=== PATIENT | female | born 1960 | race Caucasian/White ===

== ENCOUNTER 2018-11-27 22:09 | Inpatient (IN) | payer OTHER ==
[~2018-11-27] VITALS: Ht 152.4 cm; Wt 60.7 kg
--- NOTE | ~2018-11-27 | D ---
[facility] [place] [address] DISCHARGE SUMMARY Name: JAKOB QUINONES Room #: 526A-A [facility] IN M.R.#: [id number] Admission: 11/28/18 Attend Phys: Jose M Conway DO Discharge: 12/07/18 Date of : 56 Report #: [id number] THIS REPORT FOR: //name// CC: Jose M Conway [facility] physician/PCP DATE OF SERVICE: 12/07/2018 INPATIENT PSYCHIATRIC DISCHARGE SUMMARY ATTENDING PSYCHIATRIST: Jose M Conway DO ACCOUNTANT MANAGER: Adrian Garza MD DISCHARGE DIAGNOSES: Schizophrenia, suspect schizoaffective disorder, also substance use disorder for methamphetamines, likely severe degree. Medical comorbidities include hypertension, blood pressure is stable, gastroesophageal reflux disease, urinary tract infection resolved, and possible seizure disorder. DISCHARGE PLAN: She is discharged to the [facility]. It should be noted, we were advised day of discharge, the patient showed up at the [facility] and claims she had a bed there, which is not true. She was advised she needed to go through the application process and a bed at [facility] was not guaranteed. Apparently, the assisted called the hospital, [facility] that is as well as the patient's mother. DISCHARGE DIET: The patient is discharged with regular diet and Ensure supplement twice a day. DISCHARGE MEDICATIONS: Protonix 40 mg p.o. daily for GERD, naltrexone 25 mg p.o. daily dose for cravings and methamphetamine relapse, Depakote DR 1500 mg at bedtime, olanzapine 10 mg twice a day, cyanocobalamin 1000 mcg p.o. daily, cholecalciferol 5000 international units oral daily, vitamin oral daily. She was given a 30-day actual supply of the olanzapine, Depakote and naltrexone. ACTIVITY LEVEL: As tolerated. Avoid alcohol and drugs. Tobacco use was unclear, but certainly has long-term health consequences. REASON FOR ADMISSION: As follows, a 58-year-old female, homeless, presented, I believe to [facility], was feeling suicidal. Reported symptoms of major depression that is what got her admitted. HOSPITAL COURSE: The patient was initially seen by Mr. Ngo, covering for me over the weekend. At her admission, her Depakote and olanzapine were in place. I later added naltrexone to help prevent relapse. The patient would not [facility] [address] [place] [place] [address] DISCHARGE SUMMARY Name: JAKOB QUINONES ELVIA Room #: 526A-[facility] IN ..#: [id number] Admission: 11/28/18 Attend Phys: Jose M Conway, Discharge: 12/07/18 Date of : 56 Report #: [id number] cooperate with cognitive testing at that time and was paranoid, impulsive, and abrupt. There was not a clear pattern and it sounds that I thought she could be better medicated. The patient is facing ongoing homelessness. Given the lack of clinical progress and the need to make an attempt at community living for the patient, I elected to discharge her. On the day of discharge, she was not suicidal or homicidal. MENTAL STATUS EXAMINATION AT THE TIME OF DISCHARGE: As follows: VITAL SIGNS: Temperature 36.5, pulse 70, respirations 13, BP 106/61. MENTAL STATUS EXAMINATION: This is a well-developed, disheveled female appearing stated age. Attention limited. Concentration limited. Speech is normal rate. Thought process linear and limited. Thought content, feelings of frustration. No other suicidal intent or plan. Some hopelessness. Denied helplessness. Denied homicidal intent or plan. Memory, reports some impairment, refused objective testing. Insight limited. Judgment fair to limited. Fund of knowledge, no greater than average. LABORATORY DATA: The patient's lab work on this admission notable for CBC: H and H of 12.9 and 39.2, white count 7.9, platelets 222 on 11/29/2018. Chemistries are grossly normal. B12 level was 589. Urine was negative on admission. Toxicology showed a repeat Depakote level ____ 1500 mg. No repeat labs and it should be noted that she should actually be taking Depakote ER, not DR; however, I think the patient is most likely ____ sober. PROGNOSIS: For this patient is quite guarded due to her impulsive nature, limited community support and homelessness. By: [id number] Jose M Conway, DO /nt
[2018-11-27] MEDS ORDERED: DEPAKOTE500 MG PO (23:48)
[2018-11-27] MEDS ORDERED: PROTONIX40 M1 PO (23:48)
[2018-11-27] MEDS ORDERED: ZYPREXA ZYDIS10 MG PO (23:48)
[2018-11-27] MEDS ORDERED: TRAZODONE HCL50 MG PO (23:49)
[2018-11-27] MEDS ORDERED: PROPRANOLOL 1010 MG PO (23:49)
[2018-11-28 01:21] VITALS: BP 110/61
--- NOTE | 2018-11-28 02:25 | NUR ---
ADMISSION NOTE - PATIENT ARRIVED FROM [facility] AT APPROXIMATELY 0140. SHE ARRIVED IN AN EXTREMELY DISHEVELED APPEARANCE AND DISTINCT BODY ODOR. UPON FIRST INTERVIEW WITH PATIENT, SHE WOULD NOT SPEAK TO THIS RN. THIS NURSE CONTINUED TO EXPLAIN UNIT RULES, OFFERED PATIENT HANDBOOK, CODE AND PHONE NUMBER, OFFERED FOOD AND DRINK WITH NO REACTION OUT OF PATIENT. THIS RN AND PATIENT BEGAN THE ASSESSMENT PROCESS SHE BEGAN TO SPEAK MINIMAL WORDS WITH A SOFT WHISPER LIKE TONE. SHE WOULD NOT ELABORATE MUCH ON HER REASONING FOR BEING ADMITTED, BUT CONTINUED MAKING STATEMENTS SUCH SHE IS NOT SAFE ANYWHERE BECAUSE SHE WANTS TO KILL HERSELF TO GET AWAY FROM THE DEVIL. THIS NURSE ASKED IF PATIENT WOULD BE SAFE IN THE HOSPITAL SHE REPLIED 'NO' AND SHE WOULD FIND WHATEVER SHE COULD TO KILL HERSELF TO GET AWAY FROM THE DEVIL. SHE DID EXPLAIN TO THIS RN SHE HAS A HX OF SCHIZOPHRENIA ET BIPOLAR DISORDER AND HAS NOT TAKEN MEDICATION 'IN A WHILE.' SHE ALSO REPORTS THAT SHE HAS A SZ DISORDER FOR WHICH DEPAKOTE IS TAKEN. BRIM SETTER JANNY DEWEY CONTACTED TO RECEIVE ORDERS FOR VPA LEVEL, TRAZODONE 50MG, AND ONE TO ONE STATUS TO MONITOR PATIENT UNTIL STAFF KNOWS MORE OF PATIENTS BEHAVIOR AND ENSURE SAFETY OF PATIENT. NURSING INITIATED ONE TO ONE ROUNDS AND INTRODUCED PATIENT TO UNIT AND ADMINISTERED FIFTY MG OF TRAZODONE ORDERED. NURSING WILL CONTINUE TO MONITOR FOR CHANGES AND ENSURE SAFETY AT ALL TIMES.
[2018-11-28 09:24] VITALS: BP 107/57
--- NOTE | 2018-11-28 09:45 | NUR ---
ASSUMED CARE AT 0700 THIS MORNING. PT. ON 1:1 FOR SI. WHEN ASKED ABOUT HER SI, SHE STATED SHE WOULD DO ANYTHING AND EVERYTHING TO COMMIT SUICIDE, BUT SHE DID STATE SHE WOULD PERFER PILLS TO OTHER METHODS. SHE TALKS IN A VERY LOW, SOFT VOICE. SHE DOES APPEAR DEPRESSED. SHE TOOK HER MEDICATIONS WITHOUT PROBLEMS. SHE STATED ALL SHE WANT TO DO IS REST IN BED. SHE WAS INFORMED SHE COULD DO THAT FOR A LITTLE WHILE BUT NOT ALL DAY. SHE AGREED ON THIS. SHE DID, HOWEVER, SHE WENT BACK TO BED AFTER BREAKFAST. HER LUNGS WERE CTA, HRR. NO EDEMA NOTED. DENIES HI OR AVH AT THIS WRITING.
[2018-11-28 18:27] VITALS: BP 107/57
[2018-11-28 18:29] VITALS: BP 107/57
[2018-11-28 20:00] VITALS: BP 101/59
[2018-11-28 22:54] VITALS: BP 101/59
--- NOTE | 2018-11-29 01:25 | NUR ---
PATIENT WAS UP IN DAYROOM FOR HS SNACK. SHE CONTINUES ON 1:1. SHE SPOKE WITH ANOTHER NURSE AND GOT TEARY EYED AND WANTED TO SPEAK WITH HER MOM. THIS NURSE CALLED THE MOM AND LET HER KNOW PT WANTED TO SPEAK WITH HER AND WANTED TO KNOW IF MOM WOULD WANT TO SPEAK WITH HER OR NOT. SHE SAID SHE WOULD. I ASKED HER TO KEEP IT QUICK. PATIENT SPOKE A COUPLE OF MINUTES TO MOM AND CALMED SOME. PATIENT'S PHYSICAL ASSESSMENT WNL. PATIENT STATES THAT SHE IS NOT WANTING OR THINKING OF HARMING HERSELF WHEN I ASKED HER. PATIENT WENT BACK TO ROOM AND HAS BEEN CALM AND SLEEPING. BED ALARM ON AND BED IN LOW POSTION. SUICIDE PRECAUTIONS IN EFFECT. MONITORING PATIENT.
[2018-11-29 05:42] LABS: HEMATOCRIT 39.2 % (37.0-47.0); HEMOGLOBIN 12.9 gm/dL (12.0-15.0); MCH 29.6 pg (26.0-34.0); MCV 89.7 fL (80.0-100.0); RBC 4.38 mil/uL (4.20-5.00); RDW 15.4 % (10.5-14.5); WBC 7.9 thou/uL (4.0-11.0)
[2018-11-29 05:50] LABS: CALCIUM 8.9 mg/dL (8.5-10.1); CREATININE 0.9 mg/dL (0.6-1.0); POTASSIUM 4.3 mmol/L (3.5-5.1)
[2018-11-29 07:30] VITALS: BP 106/64
--- NOTE | 2018-11-29 08:35 | NUR ---
PT SITTING AT TABLE FOR BREAKFAST. PT NEEDED ENCOURAGEMENT TO EAT BREAKFAST. PT LUNGS CLEAR. PT DENIES ANY SI AT THIS TIME. D/C 1:[address] RAMIREZ. PT TOOK MEDS THIS AM. PT HAD LEFT HAND IN A FIST, LOOKED IN FIST, NOTHING THERE.
[2018-11-29 08:36] LABS: URINE BILIRUBIN NEGATIVE (Negative); URINE BLOOD NEGATIVE (Negative); URINE CLARITY CLEAR; URINE COLOR YELLOW; URINE GLUCOSE-RANDOM* NEGATIVE (Negative); URINE KETONES NEGATIVE (Negative); URINE LEUKOCYTES-REFLEX NEGATIVE (Negative); URINE NITRITE-REFLEX NEGATIVE (Negative); URINE PROTEIN (DIPSTICK) NEGATIVE (Negative); URINE UROBILINOGEN 0.2 E.U./dl (0.2-1.0)
[2018-11-29 09:03] VITALS: BP 106/64
--- NOTE | 2018-11-29 10:48 | NUR ---
PT ATTENDED HALF OF AM GROUP. PT BACK IN ROOM IN BED. CHECKING ON PT SHE STATED TO NURSE GOD BLESS YOU.
--- NOTE | 2018-11-29 15:43 | NUR ---
PT WANTING TO KNOW ABOUT SOME OF HER HOME MEDS LIKE BP MED, HER BP HAS BEEN IN LOW 100'S, PT STATED THEY HELP WITH HER SHAKES. PT PLAYING CARDS WITH 2 OTHER RESIDENT LADIES.
[2018-11-29 20:00] VITALS: BP 133/70
--- NOTE | 2018-11-29 22:23 | NUR ---
Care assumed of patient at 1914: Patient alert and oriented x4. Patient anxious this evening. Patient paranoid around other peers and environment. Patient feels that "everyone is going to get me". Reports that she needs to get a new roommate. She is not able to state why. Reports that she feels safe. So, unknown why she is requesting this. Patient slouched, presents with flat affect, difficultly making eye contact. Patient took HS medication without difficulty. Ate 100% HS snack. Patient denies SI/HI/AH/VH. Patient up at [facility] 2129 stating that she can't sleep. Patient requested medication to help her sleep. Patient provided PRN Trazodone at 2146. Patient sat on the couch for a few minutes before retiring to bed. Patient appears to be resting at this time. Patient was reassured that the bed alarm is on and if her or her roommate get out of bed, the alarm will sound and nursing staff will respond. Patient has a soft voice and needs encouragement to speak with staff. Patient did have a slight tremor to her bilateral upper extremities around 2129 when speaking with nurse. Patient reported that she was cold at that time.
[2018-11-30 08:47] VITALS: BP 125/99
--- NOTE | 2018-11-30 09:50 | NUR ---
PATIENT HAS BEEN UP ON UNIT. SUSPICIOUS AND GUARDED WHEN APPROACHED. APPEARS FEARFUL AND NEEDS ALOT OF REASSURANCE AND ENCOURAGEMENT. NEEDS MONITORING WHEN ADMINISTERING MEDICATIONS. BECAME TEARFUL WHEN APPROACHED ON HER FEARS.HS BEEN OUT ON UNIT - SOCIAL WITH PEERS BUT SHARES HER CONCERNS WITH OTHERS.
[2018-11-30 20:08] VITALS: BP 122/99
--- NOTE | 2018-11-30 22:06 | NUR ---
ASSUMED CARE OF THE PT AT 191 PM. ALERT ET ORIENTED X 2, MAKES NEEDS KNOWN. WALKS WITH A STEADY GAIT. HEART RATE REGULAR, LUNGS CLEAR BILATERALLY, RESP., EVEN, AND UNLABORED. +BS HEARD IN ALL 4 QUADRANTS. ABD SOFT ET NON TENDOR. +PP BILATERALLY. DENIES SI/HI/ANXIETY, DEPRESSION, A/V HALLUNICATIONS. REMAINS ON 12 MINUTE CHECKS FOR HER SAFETY.
--- NOTE | 2018-12-01 01:32 | NUR ---
THE PT REQUESTED SOMETHING FOR ANXIETY, GAVE THE PT ATARAX ORDERED, WHICH WHEN GIVEN TO HER ORDERED, SHE THEN REFUSED IT AND STATED THAT SHE WOULD TALK WITH THE DOCTOR IN THE AM.
--- NOTE | 2018-12-01 14:27 | NUR ---
UPON INITAL ASSESSMENT THIS AM SPEECH MUMBLED AND SOFT,POOR EYE CONTACT DIFFICULT TO HEAR AND UNDERSTAND.REQUESTED AND RECEIVED VISTARIL 50MG PO PRN AT 1230 FOR C/O ANXIETY-IS NOTED TO HAVE FINE HAND TREMOR WHICH INCREASES WITH PURPOSEFUL MOVEMENT. DENIES SI/SH/HI-DOES REPORT ANXIETY ATED A 7 ON 1-10 SCALE STATING "I DON'T KNOW HOW THINGS WORK" COMPLIENT WITH MEDS. DENIES C/O PAIN/DISCOMFORT. GAIT STEADY WITHOUT ASSISTIVE DEVICES.
[2018-12-01 19:51] VITALS: BP 130/78
--- NOTE | 2018-12-01 19:56 | NUR ---
ASSUMED CARE OF THE PT AT 191 PM. ALERT ET ORIENTED X 3. MAKES NEEDS KNOWN. HEART RATE REGULAR, LUNGS CLEAR BILATERALLY. RESP., EVEN, AND UNLABORED. +BS HEARD IN ALL 4 QUADRANTS. ABD SOFT ET NONTENDOR. +PP BILATERALLY. DENIES PAIN AT THIS TIME. REMAINS ON 12 MINUTE CHECKS FOR HER SAFETY.
[2018-12-02 08:25] VITALS: BP 119/71
--- NOTE | 2018-12-02 12:45 | NUR ---
PATIENT HAS BEEN COMPLIANT WITH MEDICATIONS. REMAINS CAUSIOUS AND GUARDED WITH CERTAIN INDIVIDUALS. PATIENT REQUESTED MEDICATION FOR ANXIOUSNESS THIS MORNING. EMOTIONAL OVER INABILITY TO GO TO [facility]. CONCERNED - WANTS TO GO THERE TO GET HELP WITH DRUG AND ALCOHOL TREATMENT AND HELP WITH RETRAINING FOR WORK. PATIENT AFFECT BLUNTED AND MOOD SUSPICIOUS AND GUARDED. WILL TRY TO MANUPULATE STAFF TO RETIRE TO HER ROOM AND ISOLATE EVERY CHANCE SHE CAN. STATES ATARAX HELPS WITH ANXIETY WHEN REASSESSED. REQUESTED TO USE PHONE TODAY AND ADVISED LIMITED TO TWO A DAY. TOLERATED EXPLANATION WELL. DENIES ANY S/I OR H/I WHEN QUESTIONED. REQUESTED THIS STAFF MEMBER TO PRAY FOR HER GUIDANCE AND WELLBEING.
--- NOTE | 2018-12-03 00:58 | NUR ---
Care assumed of patient at 1899: Patient laying in bed at start of shift. Day shift reports that patient received an IM injection for agitation and aggressive behavior prior to shift change. Upon assessing patient, she was suspicious, guarded, paranoid. Patient restless, pacing around her room, sitting on the floor. Patient stated that she needed a Bible. Patient had 2 Bibles in her room and they were given to her. Patient asking why she is always wrong, why she can't do anything right. Reports that the devil is going to get her, how does she get José Miguel. Worried about "the world". Patient yelling at the nurse stating that she was being locked up to . States that she just wants to "see the light". Bed alarm was set and she asked why she was being tied down. Patient observed laying in bathroom floor, on roomates bed. Pacing from dining room to bedroom. Patient hyperverbal. Nurse unable to re-direct or re-orientate patient. Patient threatened to hit nurse and was being confrontational. C 13 CATAPULT OPERATOR notified of behaviors. Ordered obtained to administer Thorazine 25mg IM at 2024. Patient crying stating the she needed her sleeping pill. Patient was provided scheduled HS medication, PRN Trazodone and IM Thorazine without any difficulty. Patient was able to become calmer around 2129 and appeared to fall asleep around that time. Patient has appeared to be resting since falling asleep.
--- NOTE | 2018-12-03 11:50 | NUR ---
DHAVAL met with Treatment team concerning pt going back to [facility]. DHAVAL spoke with [facility] concerning pt been accepted into there [facility]. Honey at [facility] mention that pt she would have to complete the application, and do evaluation before she accepted into the program. DHAVAL mention that pt would have go to the mcc due to she is not having a place to stay. DHAVAL and Dr. guevara met with pt concerning staying until December to be able to complate treatment, and assisting her with a mcc placement. Pt stated that she is willing to go to a mcc, and stay until Thursday of next week. DHAVAL will follow-up with pt.
--- NOTE | 2018-12-03 11:59 | NUR ---
Nutrition status changed to low risk with nutrition interventions in place.
--- NOTE | 2018-12-03 12:53 | NUR ---
Date of Admission: 11/28/18 Date of Activity Therapy Assessment: 12/01/18 Activity Goal: Increase socialization and appropriate social boundaries Initial Goal: 1 Group activity/day Weekly progress towards goal: On track Group participation level: Minimal Behaviors observed: Patient is on track for goals, but participation varies. Patient exhibits difficulty concentrating in groups and frequently exits and re enters. Patient also exhibits poor social boundaries and frequently requires redirection to respect the space and privacy of other patients and staff. Labile moods. Plan: No change towards goal
[2018-12-03 19:33] VITALS: BP 137/78
--- NOTE | 2018-12-04 01:14 | NUR ---
Care assumed of patient at 1915: Patient alert and oriented x4 with occasional confusion observed. Patient isolating self to room this shift. Declined HS snack. Patient has difficulty making eye contact. Mumbled, rambling speech. Disorganized thoughts. Patient was provided her scheduled HS medication. Depakote 1,000mg was placed in a cup and given to patient. She took medication without any difficulty. Zyprexa ODT was in the package and opened in front of patient to put under her tongue. Patient became paranoid and stated she would not take the medication. Patient stated that she was not taking "Aspirin". Education provided on medication. Patient stated that she would not take it unless nurse brings her a new pill that is not opened. Patient started to swing arms and knocked the pill to the floor. Patient would not explain why she needed a pill unopened other than paranoia on what the medication could be. Patient provided unopened Zyprexa ODT and she took it without difficulty. Patient denies SI/HI/AH/VH. Patient did not fixate on shinto thoughts and the devil this shift. Patient was able to retire to bed without any difficulty this PM and has been resting quietly since.
[2018-12-04 07:27] VITALS: BP 109/60
--- NOTE | 2018-12-04 08:29 | NUR ---
PT REFUSING ZYPREXIA MED STATING I DON'T NEED IT. PT GOING AROUND VISITING OTHER RESIDENTS AND HUGGING AND CRYING. PT DISCURAGED ABOUT TOUCHING OTHER RESIDENTS. PT WALKS AROUND WITH BLANKET OVER SHOULDERS AND HAS A FAST WALK.
--- NOTE | 2018-12-04 09:09 | NUR ---
PT ASKING NURSE FOR ANTIANXIETY MED. ADM VISTERIL 25MG PO FOR ANXIETY.
--- NOTE | 2018-12-04 11:20 | NUR ---
PT VERY INTRUSIVE WHEN OTHER FAMILY MEMBERS ARE VISITING.
--- NOTE | 2018-12-04 18:25 | NUR ---
REPLACED PT ARMBAND. PT RIPPED OFF THE PLASTIC PART TO THE ARMBAND AND HELD BEHIND HER BACK. THIS NURSE STATED THAT WE NEEDED THE PLASTIC PART OF ARMBAND, PT STATED WHAT I'M NOT GOING TO EAT IT. TOOK PLASTIC FROM PATIENT TO SHRED THE NAME PART.
[2018-12-04 20:01] VITALS: BP 143/63
--- NOTE | 2018-12-04 21:52 | NUR ---
ASSUMED CARE OF THE PT AT 191 PM. ALERT ET ORIENTED X 4. MAKES NEEDS KNOWN. HEART RATE REGULAR. LUNGS CLEAR BILATERALLY, RESP., EVEN, AND UNLABORED. +BS HEARD IN ALL 4 QUADRANTS. +PP BILATERALLY. THE PT TOOK HER HS MEDICATIONS. DENIES PAIN AT THIS TIMES, DENIES ANXIETY, DEPRESSION. DENIES SI/HI, A/V HALLUNICATIONS. REMAINS ON 12 MINUTE CHECKS FOR HER SAFETY.
--- NOTE | 2018-12-05 04:28 | NUR ---
THE PT WAS SLEEPING ON THE COUCH IN THE DAYROOM, BUT EVENTUALLY SHE WENT TO BED. DENIED PAIN EARLIER IN THE SHIFT. REMAINS ON 12 MINUTE CHECKS FOR HER SAFETY.
[2018-12-05 09:10] VITALS: BP 120/59
--- NOTE | 2018-12-05 16:49 | NUR ---
PT BECAME ABRUPTLY UPSET AND AGITATED AT APPROX 1400 ASKING TO TALK TO FAMILY AND ASSISSTED IN DIALING MOTHERS PHONE NUMBER BUT BECOMES LOUD AND AGITATED STATING "THIS ISN'T MY MOTHER THIS IS AN IMPOSTER-THEN ATTEMPTED TO GET OUT OF EXIT DOORS AND WHEN REDIRECTED CAME UP TO NURSING STATION AND BEGAN TO POUND ON GLASS,SCREAMING LET ME OUT OF HERE "YOU NEED TO GET MY FAMILY UP HERE NOW" THREW ICE WATER ON FLOOR AND INTO NURSING STAFF. SECURITY CONTACTED AND ORDERS RECEIVED FOR GEODON 20MG IM IN [facility] WITH ASSISTANCE OF SECURITY
[2018-12-05 19:55] VITALS: BP 124/72
--- NOTE | 2018-12-05 20:03 | NUR ---
PT REFUSED DEPAKOTE MEDICATION STATING 'IM NOT TAKING ALL THOSE PILLS' PT APPEARS PARANOID R/T HOSPITALIZATION.
--- NOTE | 2018-12-06 03:29 | NUR ---
ASSUMED CARE AT APPROXIMATELY 1915, PATIENT APPEARS WITH A FLAT BLUNTED AFFECT. THIS RN CONDUCTED ONE TO ONE WITH PATIENT WHO APPEARS DISHEVELED AND MALODOROUS. THIS NURSE ENCOURAGED ADLS. DURING MEDICATION PASS THE PATIENT BEGAN TO EXHIBIT BX SUCH PARANOIA R/T HER MEDICATION DOSEAGE, SIZE AND SHAPE OF THE COLORS AND STATED TO THIS 'I DONT TRUST ANYTHING YOU DO.'PLEASE SEE OTHER NOTES REGARDING INITIAL REFUSAL OF PO DEPAKOTE. SHE DID DENY SI HI SH WELL HALLUCINATIONS. SHE DID NOT REPORT ANY MEDICAL CONCERNS WITH NO S/S OF DISTRESS. NURSING WILL CONITNUE TO MAINTAIN ALL PRECAUTIONS TO ENSURE SAFETY AT ALL TIMES.
[2018-12-06 11:55] VITALS: BP 116/75
--- NOTE | 2018-12-06 13:29 | NUR ---
PATIENT OBSERVED HURRYING TOWARDS DINING JENSEN WITH CUP IN HER HAND. STAFF ROUNDED CORNER FROM BACK HALLWAY AFTER HER ANNOUNCING PATIENT HAD URINE IN THE CUP. ATTEMPT MADE TO REDIRECT PATIENT WHILE WALKING TOWARDS HER. PATIENT EMPTIED CUP INTO WATER MACHINE IN DINING ROOM AFTER BEING INSTRUCTED TO STOP AND HAND STAFF THE CUP. PATIENT WENT TO TABLE TO SIT AFTER EMPTYING CUP WITH EMPTY CUP IN HAND. PATIENT EDUCATED THAT SHE WAS NOT ABLE TO EMPTY URINE IN THERE AND TOLD IT CAN HARM HERSELF & OTHERS. PATIENT ARGUMENTATIVE THAT SHE WAS NOT ABLE TO GET IN HER ROOM. MACHINE SANITIZED WITH BLEACH AFTER INCIDENT. PATIENT REMAINED IN DINING ROOM W/ STAFF SUPERVISION.
--- NOTE | 2018-12-06 17:39 | NUR ---
PATIENT ALERT AND ORIENTED AND BECOMES TEARFUL REGARDING HER INPATIENT PSYCH STAY. PATIENT HAS MANY REQUESTS FROM STAFF REGARDING HER ROOM ASSIGNMENT AND FOOD AND MEDICATIONS. IF PATIENT DOES NOT GET WHAT SHE WANTS SHE BECOMES TEARFUL AND WILL APPROACH OTHER STAFF WITH THE SAME REQUEST. PATIENT BECAME AGITATED REGARDING BATHROOMING SEVERAL TIMES AND CALLED STAFF LIARS INDICATED SHE WAS NOT ALLOW TO TOILET. HOWEVER PATIENT OFFERED TOILETING MULTIPLE TIMES, BUT REFUSED TO LEAVE MULTIPLE ITEMS AND CLOTHING OUT OF BATHROOM. PATIENT FINALLY COMPLIED AND TOILETED BY FEMALE STAFF. PATIENT WROTE NOTE TO ANOTHER PATIENT TODAY STATING, "THE MEDS ARE CHANGED ALL THE TIME." AND GAVE NOTE TO ANOTHER PATIENT. THE WRITTEN NOTE IS DATED AND TIME AND PLACED IN PAPER CHART. PATIENT SLEPT 6 HRS LAST NIGHT PER SPECIALTY FINISHING UTILITY PERSON. PATIENT REFUSED GROUPS TODAY AND UPSEPT ABOUT NOT BEING ALLOWED TO HER ROOM. POSSIBLE DISCHARGE TOMORROW.
[2018-12-06 19:12] VITALS: BP 155/87
--- NOTE | 2018-12-06 19:28 | NUR ---
ASSUMED CARE OF THE PT AT 191 PM. THE PT HAS BEEN UP AND ABOUT THE UNIT. ALERT ET ORIENTED X 3. MAKES NEEDS KNOWN. HEART RATE REGULAR, LUNGS CLEAR BILATERALLY, RESP., EVEN, AND UNLABORED. +BS HEARD IN ALL 4 QUADRANTS. ABD SOFT ET NON TENDOR. +PP BILATERALLY. DENIES PAIN AT THIS TIME. REMIANS ON 12 MINUTE CHECKS FOR HER SAFETY.
--- NOTE | 2018-12-06 21:12 | NUR ---
THE PT HAS BEEN HAVING DELUSIONS TONIGHT, THINKING HER ROOMMATE TOUCHED HER INAPPROPRIATELY, WHICH SHE HAD NOT. STATING THAT HER MEDS WERE GOING TO KILL HER TONIGHT, SHE ONLY TOOK 500MG OF HER DEPAKOTE THIS EVENING, REFUSING THE REST OF IT. SHE DID TAKE HER OLANZPINE SL. SHE IS VERY CONFUSED THIS EVENING, THINKS EVERYONE IS TALKING ABOUT HER. SHE CAME UP TO THE NURSING STATION REQUESTING TO TAKE THE REST OF HER MEDICATION, WHICH SHE DID TAKE WITHOUT ANY DIFFICULTY.
--- NOTE | 2018-12-06 21:41 | NUR ---
THE PT CAME UP TO THIS NURSE SAYING, "I AM THE DEVIL." THIS TUBERCULOSIS SPECIALIST EXPLAINED TO THE PT THAT SHE IS NOT THE DEVIL. A FEW MINUTES LATER, SHE ASKED TO HAVE SOMETHING TO EAT, WHICH WAS GIVEN TO THE PT, SHE THEN TRIED TO PUT HER HANDS IN THIS TUBERCULOSIS SPECIALIST'S POCKETS, THE PT WAS THEN REDIRECTED.
[2018-12-07 09:39] VITALS: BP 106/61
[2018-12-07] MEDS ORDERED: DEPAKOTE500 MG PO (10:29)
[2018-12-07] MEDS ORDERED: REVIA 50 MG TAB50 M1 PO (10:29)
[2018-12-07] MEDS ORDERED: ZYPREXA 10 MG T10 MG PO (10:31)
[2018-12-07] MEDS ORDERED: B-121000 MC2 PO (10:32)
[2018-12-07] MEDS ORDERED: VITAMIN D5000 UNIT PO (10:33)
[2018-12-07] MEDS ORDERED: PRENATAL PO (10:33)
--- NOTE | 2018-12-07 11:29 | NUR ---
PATIENT HAS BEEN UP AND OUT ON THE UNIT FOR MEALS AND MEDS. TOOK ALL MEDICATION WHOLE ONE AT A TIME WITHOUT DIFFICUTY. APPETITE IS GOOD, PATIENT EATS 75% MEALS. PATIENT IS FORGETFUL, VERY CONFUSED, DISORGANIZED THOUGHTS. PATIENT DENIES SUICIDAL AND HOMOCIDAL IDEATION. SHE IS RESTLESS, ANXIOUS, MULTIPLE SOMATIC COMPLAINS, " DO YOU HAVE ANYTHING THAT CAN CURE CONFUSION?" PATIENT REDIRECTED AND NOTIFIED THAT I CAN GIVE HER SOMETHING TO CONTROL HER ANXIETY, BUT DON'T KNOW IF THERE IS ANYTHING THAT CAN CURE CONFUSION. PATIENT MAKING MULTIPLE DEMANDS. PRN HYDROXYZINE 25 MG GIVEN, WITH MIN EFFECT. PATIENT DENIES HAVING PHYSICAL PAIN. AFFECT IS FLAT MOOD IS ANXIOUS, LABILE. PATIENT IS DISCHARGED TO [facility] BY DR. RAMIREZ TODAY. NURSING EDUCATION SPECIALIST SET UP TRANSPORTATION FOR 1400HRS, WILL MONITOR FOR SAFETY.
[2018-12-07 12:55] VITALS: BP 106/61
[2018-12-07 13:13] VITALS: BP 106/61
--- NOTE | 2018-12-07 16:54 | NUR ---
Patient Name: JAKOB QUINONES Admission Date: 11/28/18 DISCHARGE PLAN: [facility]. Care Assessment: Pt was assessed by Dr. Conway in diagnosed with Major Depressive Disorder with Behavior Disturbances. Level II Assessment: None Transportation: Pt was transported by the [facility] Instructions/Notes: Pt will need continuance care with a psychiatrist, and housing. DHAVAL spoke with a case manager specialist at [facility] who mention if the pt complete the 30 day transtion program she can qualify for housing. DHAVAL assist pt with her medication for 30 day supply through [facility] outpatient pharmacy. DISCHARGE TO FACILITY: Facility: Phone: Fax: Address: Contact Name: Phone: PCP: ELIZA Psychiatrist: DHAVAL assist pt with appointment through [facility] on December 15, 2018 at Noon.
== END 2018-12-07 16:45 | disposition home or self-care (01) | DRG 885 ==
LOC: SBH 22:09
PROVIDERS: Internal Medicine; ADMIT Psychiatry & Neurology Psychiatry
DX: F20.9 Schizophrenia, unspecified (principal); N39.0 Urinary tract infection, site not specified; R45.851 Suicidal ideations; F15.90 Other stimulant use, unspecified, uncomplicated; I10 Essential (primary) hypertension; K21.9 Gastro-esophageal reflux disease without esophagitis; F31.9 Bipolar disorder, unspecified; G47.00 Insomnia, unspecified; F41.9 Anxiety disorder, unspecified; F03.90 Unspecified dementia, unspecified severity, without behavioral disturbance, psychotic disturbance, mood disturbance, and anxiety; G40.909 Epilepsy, unspecified, not intractable, without status epilepticus; Z87.891 Personal history of nicotine dependence; Z79.899 Other long term (current) drug therapy
CPT/HCPCS: 10880

== ENCOUNTER 2019-02-16 17:26 | Inpatient (IN) | payer OTHER ==
[~2019-02-16] VITALS: Ht 152.4 cm; Wt 60.8 kg
[~2019-02-16 17:26] MED LIST: B-121000 MC2 PO; DEPAKOTE500 MG PO; PRENATAL PO; PROPRANOLOL 1010 MG PO; PROTONIX40 M1 PO; REVIA 50 MG TAB50 M1 PO; TRAZODONE HCL50 MG PO; VITAMIN D5000 UNIT PO; ZYPREXA 10 MG T10 MG PO; ZYPREXA ZYDIS10 MG PO
[2019-02-16 19:20] VITALS: BP 131/83
[2019-02-16 22:09] VITALS: BP 131/83
--- NOTE | 2019-02-16 22:24 | NUR ---
POLICE WERE CALLED TO [place] WHERE PT WAS STAYING. C/O FEELING SUICIDAL. EMS TRANSFERRED PT TO [facility] ED FOR EVAL. THEY CONTACTED [facility]. PT HAS BEEN A PREVIOUS PT HERE. ACCEPTED FOR ADMISSION AND TRANSFERED TO UNIT FROM [facility]. CALM AND COOPERATIVE UPON ADMISSION. HAS BEEN DEPRESSED AND FRUSTRATED THAT SHE CANNOT FIND A PLACE TO LIVE. HAS BEEN TO [facility] IN THE PAST, BUT THEY ARE "ALL FULL". CLAIMS THAT HER SI IS INFREQUENT BUT THERE OCCASIONALLY. CLAIMS TO HAVE BEEN TAKING HER SCHEDULED MEDS. MEDICAL HX INCLUDES PARKINSONS, HTN, AND SEIZURES. SHE HAS A SUBSTANCE ABUSE HX INCLUDING METH AND ETOH. CLAIMS TO ONLY DRINK "ONCE IN A WHILE".
--- NOTE | 2019-02-17 03:14 | NUR ---
PT HAS SLEPT WELL THROUGH THE NIGHT W/O PROBLEM.
[2019-02-17 08:59] VITALS: BP 104/53
[2019-02-17 09:10] VITALS: BP 104/53
--- NOTE | 2019-02-17 16:46 | NUR ---
0700: Report received from outgoing RN and care assumed. Pt is alert and aware of where she is at this morning. Ahe came for breakfast. Able to take medications without any issue. Able to ambulate around the unit. Didnt attend therapy today. Pt calm and cooperative. She refused nicotine patch and Flu vaccine. Education given but she still didn't accept. Pt has resting tremors. Will continue with plan of care.
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
[2019-02-17 20:06] VITALS: BP 120/88
--- NOTE | 2019-02-17 22:44 | NUR ---
PT SITTING IN DAY ROOM WITH PEERS WATCHING TV. COMPLIANT WITH MEDS AND SNACK, BLUNTED AFFECT. PT STATED SHE HAS BEEN HOMELESS AND STAYING AT DIFFERENT PLACES. GAIT STEADY.
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
--- NOTE | 2019-02-18 10:29 | NUR ---
0700 Sleeping without s/o distress. Awakens easily, orientated X4. Denies SI/HI. Ambulates without difficulty. Cooperative and compliant. Breath sounds clear t/o, bilaterally equal, slightly diminished in lower lobes. Reg HR auscultated. Color pink with brisk capillary refill and palpable peripheral pulses. Active bowel sounds over soft, flat abdomen. Denies pain. 0930 Refusing flu shot. States, "At first it makes you very sick." Also refusing nicotene patch. States, "I don't need it yet." Says she will ask when she thinks she needs it. Refused Divalproex. States she only takes it in the evening. Education provided. States it is making her too sleepy and she will not take it. Agrees to discuss with Dr. Conway. Dr. Conway notified just prior to care team meeting. States he will discuss meds with patient today.
--- NOTE | 2019-02-18 12:14 | NUR ---
DHAVAL talked with Lissett Carver who told SW some of pt's history. She said pt resided at [facility] and she met pt on 01/18. When pt attempted to enroll in Mental Health Court on 01/25, the police judge felt like she was not ready for [facility] yet, and wanted to review this in 30 days. Pt then moved up [place] where she did not have access to any resources. She said contrary to what pt said about [facility] wanting to tranfer her, they have said she can remain in their program. however JR, has yet to start that process due her being unsure if pt will follow through. SW asked if pt decided to get all of her services from [facility] if that was an option. JR said that is an option if pt decides that is what she would like to do. DHAVAL said she will ask pt to sign a TREY if she would like her to coordinate her d/c care with Lissett. She agreed. DHAVAL talked with pt about d/c plans and signing a TREY for JR. Pt agreed to complete a TREY and also agreed that maybe having all services at [facility] was the best option due to her cognitive issues. SW team will continue to follow pt during her stay.
[2019-02-18 20:29] VITALS: BP 108/66
--- NOTE | 2019-02-19 02:22 | NUR ---
1909-Report received from day shift nurses and care assumed.Taran had a shower this evening, was compliant with HS meds., had no c.o.pain. She said she had a good day today, soft spoken, stayed to herself in the day room watching TV, and wanted her small bible in her belongings bag which she received. She had no SI and said she talked to the DRAnh today. She has slept well all nite thus far.
[2019-02-19 07:10] VITALS: BP 101/59
[2019-02-19 07:20] VITALS: BP 101/59
--- NOTE | 2019-02-19 13:56 | NUR ---
Sleeping w/o s/o distress. States she is cold when awakened for breakfast. Denies pain, SI/HI. Breath sounds clear t/o, bilaterally equal. Color pink with brisk capillary refill and palpable peripheral pulses. Active bowel sounds over soft, flat abdomen. Up ambulating in unit without difficulty. Requesting soda for lunch. No other issues reported.
[2019-02-19 20:06] VITALS: BP 104/53
--- NOTE | 2019-02-19 23:23 | NUR ---
ASSUMED CARE ON 02/19/19 @ 19:00, SITTING IN THE DAY ROOM IN A CHAIR AT THE TABLE, WEARING A HOSPITAL GOWN, WITH A SECOND GOWN TURNED AROUND BACKWARDS A ROBE. COOPERATED WITH ASSESSMENT AND HS MEDICATIONS. DENIES SI AND HI. DENIES HALLUCINATIONS, BOTH AUDIO AND VISUAL. WILL CONTINUE TO MONITOR Q 12 MINUTES FOR PATIENT SAFETY.
[2019-02-19 23:27] VITALS: BP 104/53
--- NOTE | 2019-02-20 06:25 | NUR ---
SLEPT 8.6 HOURS OVERNIGHT.
[2019-02-20 07:36] VITALS: BP 107/47
[2019-02-20 10:29] VITALS: BP 151/47
--- NOTE | 2019-02-20 10:36 | NUR ---
0703 Report received from overnight shift, patient ate breakfast took medication without incidence. Patient denies any SI, I washed patients clothes. Patient is homeless and states she is trying to get better. Patient seems a little antsy, neuro cognitive testing down 02/19/19. Patient cooperative calm.
[2019-02-20 19:55] VITALS: BP 114/91
--- NOTE | 2019-02-21 01:37 | NUR ---
Care assumed of patient at 1915: Patient seated in day room at start of shift. Patient observed coloring and reading. Patient alert and oriented x4. Calm, pleasant and cooperative. Blunted appearance observed. Patient had some difficulty making eye contact during nursing assessment. Denies pain or discomfort. Patient completes ADLs independently at this time. When asked if patient was having SI, she stated "no because I have a roof over my head now". Patient reported the same answer when she was asked about feeling depressed or anxious. Denies HI/AH/VH. No s/s of delusional or paranoia behaviors. Patient took HS medication whole without difficulty. Ate 100% HS snack. Patient did need re-directed a couple times on focusing on herself and her emotional well being and not other peers present. Patient was able to retire to bed at a reasonable hour and has been resting quietly since.
[2019-02-21 07:48] VITALS: BP 114/80
[2019-02-21 09:22] VITALS: BP 114/80
--- NOTE | 2019-02-21 11:44 | NUR ---
ASSUMED CARE AT 0700 THIS MONING. PT. IN BED. SHE WAS COOPERATIVE WITH HAVING HER VITALS TAKEN. SHE TOOK MEDS WITHOUT PROBLEMS. SHE ATTENDED MORNING MEETING AND ATE ON THE UNIT. SHE APPEARS SUBDUED AND SOMEWHAT DEPRESSED. SHE DRESSED IN HER OWN CLOTHING AND DID ADL'S. SHE DENIES SI/HI OR AVH AT THIS WRITING.
[2019-02-21 20:00] VITALS: BP 138/69
[2019-02-21 20:18] VITALS: BP 138/69
--- NOTE | 2019-02-22 03:14 | NUR ---
PATIENT WAS UP IN DINING ROOM WHEN I CAME ON SHIFT AT 1900. SHE WAS WATCHING TV WITH OTHERS. SHE WENT TO BED AROUND 2100. SHE IS CALM AND COOPERATIVE. QUIET AND SAD LOOKING. SPOKE WITH PATIENT WITH MED PASS AND SHE STATES THAT SHE KNOWS SHE IS GOING TO BE DISCHARGED SOON AND SHE DOESN'T WANT TO GO TO [place]. SHE STATES SHE WAS THERE BEFORE AND DID NOT FEEL LIKE IT WAS HELPING HER. SHE STATES SHE WISHES SHE COULD JUST HAVE HER OWN PLACE AND LIVE ON HER OWN. WE DISCUSSED GOAL SETTING AND CHOICES SHE CAN MAKE BASED ON REALITY OF SITUATION. ALSO DISCUSSED HER ASIYA IN HER PENTECOSTAL ASIYA AND DEPENDENCE ON GOD. SHE THANKED ME FOR TALKING WITH HER AND WENT TO SLEEP SHORTLY AFTER. DENIES SI AND HI. WILL CONTINUE TO MONITOR.
[2019-02-22 08:59] VITALS: BP 138/69
--- NOTE | 2019-02-22 09:10 | NUR ---
THE PATIENT WAS IN THE DAY ROOM EATING BREAKFAST. SHE DENIED HI/SI DURING HER ASSESSMENT. THE PATIENT IS ALERT AND ORIENTED X4. SHE AMBULATES WITH A STEADY GAIT. SHE HAS BATH ROOM PRIVILEGES. THE PATIENT REFUSED HER NICOTINE PATCH THIS AM. SHE WAS COMPLIANT WITH MEDICATIONS AND COOPERATIVE WITH HEALTH CARE PROVIDED TO HER. SHE IS HOMELESS. SHE IS SUPPOSE TO BE DISCHARGE TODAY. SHE HAS A FLAT AFFECT BUT COMES OFF PLEASANT.
[2019-02-22 09:56] VITALS: BP 106/50
[2019-02-22] MEDS ORDERED: PROPRANOLOL 1010 MG PO (11:25)
[2019-02-22] MEDS ORDERED: PROZAC 10 MG CA10 MG PO (11:26)
[2019-02-22] MEDS ORDERED: DIVALPROEX SOD500 M1 PO (11:26)
[2019-02-22] MEDS ORDERED: SEROQUEL 50 MG50 MG PO (11:28)
[2019-02-22 12:01] VITALS: BP 106/50
--- NOTE | 2019-02-22 16:42 | NUR ---
DHAVAL contacted 211 and was unable to locate [place] [facility] [place]. DHAVAL consulted with medical team to come up with a plan. Pt will stay another night and be d/c in the morning to do a [facility] intake at [facility], at [address], [facility] [address]. DHAVAL contacted Lissett to ask if she can met pt at that facility for contiuum of care purposes. No answer. Radha avendano.
[2019-02-22 20:27] VITALS: BP 114/57
--- NOTE | 2019-02-23 04:25 | NUR ---
ASSESSMENT: PT REMAIN ALERT AND ORIENT TIMES FOUR; UP AD TOMER. WILL DC THIS MORNING AT OR BEFORE 0800 AM PER Maggi TOM VSKera, AFEBRILE. SLEPT WELL DURING THE NIGHT. PT IS TO BE SHOWERED AND PACKED UP FOR TAKING A CAB TO [facility] FOR POSSIBLE RETIREMENT. RUMA IS TO MAKE ARRANGEMENTS FOR A CAB RIDE FOR THE PT...PER DR RAMIREZ. SLOW PROGRESS TOWARDS DC GOALS, WILL CONTINUE TO MONITOR.
[2019-02-23 07:57] VITALS: BP 83/40
[2019-02-23 08:10] VITALS: BP 106/50
--- NOTE | 2019-02-23 10:23 | NUR ---
ASSUMED CARE OF PT AT APPROX 0700. PT IS ALERT AND ORIENTED. ASSESSMENT CHARTED. DENIES PAIN AND SOA. PT LEFT VIA CAB AT APPROX 0830. PT WAS GIVEN DC INSTRUCTIONS PAPERWORK, AND BELONGINGS AT TIME OF DC. PT DENIES QUESTIONS OR CONCERNS. PT DC/D TO APPROPRIATE LEVEL OF CARE.
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
== END 2019-02-23 08:30 | disposition short-term general hospital (02) | DRG 885 ==
LOC: SBH
PROVIDERS: ADMIT Psychiatry & Neurology Psychiatry
DX: F25.1 Schizoaffective disorder, depressive type (principal); R45.851 Suicidal ideations; G31.84 Mild cognitive impairment of uncertain or unknown etiology; F34.1 Dysthymic disorder; F41.9 Anxiety disorder, unspecified; G40.909 Epilepsy, unspecified, not intractable, without status epilepticus; F17.210 Nicotine dependence, cigarettes, uncomplicated; I10 Essential (primary) hypertension; K21.9 Gastro-esophageal reflux disease without esophagitis; F31.9 Bipolar disorder, unspecified; R25.1 Tremor, unspecified; Z59.0 Homelessness; Z91.5 Personal history of self-harm; Z90.49 Acquired absence of other specified parts of digestive tract; Z28.21 Immunization not carried out because of patient refusal
CPT/HCPCS: 10880

== ENCOUNTER 2021-04-09 15:02 | Emergency (ER) | payer OTHER ==
[~2021-04-09] VITALS: Ht 152.4 cm; Wt 63.5 kg
[~2021-04-09 15:02] MED LIST changes: +DIVALPROEX SOD500 M1 PO; +PROZAC 10 MG CA10 MG PO; +SEROQUEL 50 MG50 MG PO
[2021-04-09 15:03] VITALS: BP 146/75
[2021-04-10] MEDS ORDERED: TOPROL XL25 MG PO (15:24)
[2021-04-10] MEDS ORDERED: HYDROXYZINE PAM25 M1 PO (15:25)
[2021-04-10] MEDS ORDERED: VRAYLAR1.5 MG PO ×2 (15:25→15:26)
[2021-04-10] MEDS ORDERED: PROAIR HFA8.5 GM INH (15:26)
== END 2021-04-09 23:30 ==
LOC: ER 15:02
PROVIDERS: Emergency Medicine
DX: R41.82 Altered mental status, unspecified (principal); Z20.822 Contact with and (suspected) exposure to COVID-19; G20 Parkinson's disease; I10 Essential (primary) hypertension; F17.210 Nicotine dependence, cigarettes, uncomplicated; Z79.899 Other long term (current) drug therapy

== ENCOUNTER 2021-04-09 17:13 | Inpatient (IN) | payer OTHER ==
[~2021-04-09] VITALS: Ht 160 cm; Wt 68.4 kg
--- NOTE | 2021-04-10 00:03 | NUR ---
Arrived on the [facility] floor on 04/09/21 @ 22:25 via W/C accompanied by x1 ED staff. Able to stand and transfer to Bed 518A with a somewhat unsteady gait. Reports uses a walker to ambulate. VS 142/79 69 21 96.5F 99%. Admission DX is Unspecified Psychosis F29. Patient reports Auditory Hallucinations, Anxiety about her son, has delusions that the son is with her, but also reports that he is supposed to be in longterm and that she does not know where he is. Continent of urine, reports is continent of Bowel with last BM 04/08/21. Noted trembling secondary to Parkinsons. Reports also "I have dementia". Bipolar dx, Schizoaffective D/O, Parkinsons and seizure. No Known Allergies and is a full code. Regular diet. Patient signed herself in, ate 100% of snack and is resting in bed. Bed in low position, bed alarm set.
[2021-04-10 06:12] LABS: CHOLESTEROL 190 mg/dL (<200); HDL CHOLESTEROL 56 mg/dL (>40); LDL CHOLESTEROL 100 mg/dL (<100); TC:HDL 3.4 Ratio (Not establshd); TRIGLYCERIDE 173 mg/dL (<150); VLDL 35 mg/dL (<40)
[2021-04-10 08:58] VITALS: BP 94/48
[2021-04-10 09:30] VITALS: BP 137/114
[2021-04-10 10:03] LABS: ANION GAP 10 mmol/L (7-16); BUN 16 mg/dL (7-18); CALCIUM 9.2 mg/dL (8.5-10.1); CHLORIDE 110 mmol/L (98-107); CO2 25 mmol/L (21-32); GLUCOSE 102 mg/dL (74-106); MAGNESIUM 2.1 mg/dL (1.8-2.4); POTASSIUM 4.6 mmol/L (3.5-5.1); SODIUM 145 mmol/L (136-145)
--- NOTE | 2021-04-10 10:37 | NUR ---
Nutrition: pt admitted to [facility], hx of bipolar, schizoaffective disorder, Parkinsons, seizure. New admit. Visited with pt. Voices no major weight changes, fluctuates up and down a few #. Fair appetite reported but did consume about 75% of breakfast. Labs/meds reviewed. Pt voices eats very little meat and does not want any chicken, turkey or beef. Will eat fish, tuna salad, veggie burgers, cottage cheese, eggs, milk, yogurt, ensure as protein sources. Will order ensure once daily and substitute alternate proteins as requested. Low nutrition risk otherwise.
[2021-04-10 10:59] LABS: HEMATOCRIT 40.2 % (37.0-47.0); HEMOGLOBIN 13.3 gm/dL (12.0-15.0); MCH 30.4 pg (26.0-34.0); MCHC 33.1 g/dL (28.0-37.0); MCV 91.7 fL (80.0-100.0); RBC 4.38 mil/uL (4.20-5.00); RDW 14.2 % (10.5-14.5); WBC 7.7 thou/uL (4.0-11.0)
[2021-04-10] MEDS ORDERED: TOPROL XL25 MG PO (15:24)
[2021-04-10] MEDS ORDERED: VRAYLAR1.5 MG PO ×2 (15:25→15:26)
[2021-04-10] MEDS ORDERED: HYDROXYZINE PAM25 M1 PO (15:25)
[2021-04-10] MEDS ORDERED: PROAIR HFA8.5 GM INH (15:26)
[2021-04-10 18:57] VITALS: BP 137/114
[2021-04-10 19:45] VITALS: BP 137/114
--- NOTE | 2021-04-10 19:51 | NUR ---
Assumed pt care this morning from overnight shift. Pt presented alert and oriented 3x at this time, and though was still rather unsure as to situation. Pt presented as shaky and withdrawn at this time. When asking mood questions, pt voiced some depression and anxiety, but declined prn hydrox. initially request. Pt also declined prozac, stating that she had gained forty pounds on it several years prior and did not want to take it. Pt bp was to low for blood pressure medication at this time, so this was held. Pt did voice hallucinations, but did not want to elaborate with staff as to what these hallucinations where though pt could be seen talking to air on side of bed, and could be seen waving arms. Pt denied si/hi. Pt last BM 04/09. Bowel sounds active. Lung sounds clear. Medications changed from prozac to olanzapine, which pt accepted and took after pt education was completed. No further concerns at this time.
--- NOTE | 2021-04-10 22:52 | NUR ---
Assumed care on 04/09/21 @ 1900, in her room in bed, awakens to voice, cooperative with care A&Ox3-4. Tremors noted, able to feed self pudding for snack, with a shaky hand. Compliant with medication administration, able to take tablets whole with water. Tylenol 650mg provided for upper back pain of 6/10. Denies anxiety and depression, denies hallucinations. Did ask, "Did you say you had some bad news?" Reassured that she is safe in the hospital, she seemed to be pleased with this reassurance. Denies suicidal ideation. Reports having food that she liked at meals today. Returned to bed, bed is in low position. Will continue to monitor for safety and comfort as per unit protocol.
[2021-04-11 07:08] LABS: GLYCOHEMOGLOBIN (HGB A1C) 5.5 % (4.8-5.6)
--- NOTE | 2021-04-11 08:15 | H ---
[facility] [place] [address] HISTORY AND PHYSICAL Name: JAKOB QUINONES Room #: 518A-A ADM IN M.R.#: [id number] Admission: 04/09/21 Attend Phys: Jose M Conway DO Discharge: Date of : 56 Report #: [id number] THIS REPORT FOR: cc: FAM - No family physician/PCP FAM - No family physician/PCP Jose M Conway DO ~ DATE OF SERVICE: 04/09/2021 INPATIENT PSYCHIATRIC EVALUATION ATTENDING PSYCHIATRIST: Jose M Conway DO MEDICAL CONSULTANTS: Lucila Perea APRN and Joaquin Paniagua MD, and his hospitalist team. SOURCES OF INFORMATION: Records from [facility], interview with the patient, past records here at [facility]. Of note, the patient was admitted to the [facility] prior to the current pandemic in late November and early 12/2018. The patient is her own person. She does not have any durable power of insole stiffener I am aware of. CHIEF COMPLAINT: Hallucinations. HISTORY OF PRESENT ILLNESS: This is a 60-year-old, likely as she is not sure, female. She is currently living in an apartment in [place] in [place], [place]. She states she does not feel comfortable going home because someone is following her. She states she hears a voice, but she is unable to understand. She actually told this author that she heard voices talking about doing harm to other people, not her. She states she has felt this way on and off for a while. She used to be on medication that helped her, but she reported to the [facility] ER, her psychiatrist stopped giving them to her. She denies SI or HI at [facility]. She ran out of her seizure medication, but she has not had any seizure recently. She denies other complaints except feeling like she cannot go home because she lives alone and is afraid. PAST PSYCHIATRIC HISTORY: Extensive including bipolar disorder, mild neurocognitive disorder. They have noted dementia, but she received neuropsych testing by Dr. Allen and was diagnosed by mild neurocognitive disorder. She does have a history of schizoaffective disorder. There is a listed history of Parkinson's disease on the [facility] paperwork and the patient stated so. PAST SURGICAL HISTORY: The patient has a history of 2 elective terminations x2, cholecystectomy and tubal ligation. SOCIAL HISTORY: She is a former smoker, never used smokeless tobacco. She last used methamphetamines in 10/2018, not currently using illicit drugs. When I [facility] [address] [place] [address] HISTORY AND PHYSICAL Name: QUINONESJAKOB Room #: 518A-A [facility] IN M.R.#: [id number] Admission: 04/09/21 Attend Phys: Jose M Conway DO Discharge: Date of : 56 Report #: [id number] asked her how much alcohol she uses, she puts up about an inch and a half dimension of the amount of alcohol -Beer, she drinks every couple of weeks. FAMILY HISTORY: The patient's mother notes possible diagnosis of Lewy body disease and consistent with history. REVIEW OF SYSTEMS: From [facility] ER is as follows: CONSTITUTIONAL: Negative. HEENT: Negative. EYES: Negative. RESPIRATORY: Negative. CARDIOVASCULAR: Negative. GASTROINTESTINAL: Negative. ENDOCRINE: Negative. GENITOURINARY: Negative. MUSCULOSKELETAL: Negative. ALLERGY AND IMMUNOLOGIC: Negative. NEUROLOGIC: Negative. HEMATOLOGIC: Negative. PSYCHIATRIC AND BEHAVIORAL: The above ideations of being followed present and auditory hallucinations. The patient's physical exam was grossly normal in the ER. LABORATORY DATA: From the ER: They did an EKG at [facility], [place] interval was 160 milliseconds, heart rate 61 beats per minute, QTc 433 milliseconds, QT 430 milliseconds. SARS-CoV-2 PCR was negative. Alcohol was negative. On a complete blood count, white count was 9.15, H and H was 12.9 and 40, platelet count 246. Electrolytes showed sodium 144, potassium 3.8, chloride 112, bicarbonate 25, anion gap 7, calcium 8.9, glucose 87, total serum protein 6.9, albumin 4.1. Alkaline phosphatase 127, ALT 33, AST 22. Total bilirubin 0.20, creatinine 1.00. GFR in a female, non-, 56.2. Salicylate less than 3, acetaminophen less than 2. Urine drug screen was not detected. Urine was yellow. No glucose in urine. HOME MEDICATIONS: Noted from [facility], Depakote ER 1000 mg at bedtime; hydroxyzine, unspecified dose; Keppra, which she denies. She is still taking olanzapine 10 mg oral disintegrating tablet, propranolol 10 mg, unspecified dose of Seroquel and trazodone. I have reasons to believe that is an inaccurate medication list. Our pharmacist here at [facility] got a list of her prescription from [facility] in [place], [place] dating back to 12/2020. The ones from February and March include a very large dose of 3 mg in the morning and 1.5 mg in the afternoon, metoprolol succinate 25 mg ER tab, one-half tablet by mouth twice daily; hydroxyzine 25 mg 1 capsule by mouth twice daily as needed for anxiety; Denise [facility] [address] [place] [address] HISTORY AND PHYSICAL Name: JAKOB QUINONES Cesar Room #: 518A-A ADM IN M.R.#: [id number] Admission: 04/09/21 Attend Phys: Jose M Conway DO Discharge: Date of : 56 Report #: [id number] HFA inhaler 1 puff inhalation q. 6 hours as needed for wheezing. The last time she had other kinds of medication was mid December. . In any event, the patient is a suboptimal historian. ADDITIONAL INFORMATION: Psychiatric hospitalizations at [facility] several times, [place] and [place]. Most recent hospitalization was in 01/2021 at [facility]. She did admit she lost her Depakote about 5 days ago and has been off it since. She sees Dr. Mendoza at [facility]. We have sent records request to [facility] better determine her functionality and regimen. The patient is on [place] Medicaid. In any event, here at [facility], lab work so far, hematology: White count 7.7, H and H 13.3 and 40.2, platelet count 289. Chemistry: Sodium 145, potassium 4.6, chloride 110, bicarbonate 27, anion gap 10, BUN 50, creatinine 1.0, estimated GFR 56. Magnesium 2.1, calcium 9.2. Triglycerides 173, cholesterol 190, LDL 100, HDL 56. B12 level 589. Interestingly, when she was last here in 02/22/2019, her Depakote level was 59. I ordered a repeat Depakote level for this evening, we will see where she is at, as there is a schizoaffective disorder history aside from her seizure concern. PHYSICAL EXAMINATION: VITAL SIGNS: Today as follows: Temperature 35.6, pulse 60, respirations 18, BP ranging from 91-94 systolic and 45-48 diastolic, O2 sat 100% on room air. GENERAL: She is wearing glasses and scrub suit. Utilizing a rolling walker. MENTAL STATUS EXAMINATION: Well-developed; hand tremulous, left greater than right, female. [facility] mental status examination was performed. The patient scored a 19/30. Deficits included working memory, clock drawing, cued memory. She was 5/5 for immediate memory. She was one off on the day of the week. Attention limited. Concentration limited. Speech, soft volume, normal rate. Thought process: Linear and goal directed. Thought content: Denied presently auditory hallucinations, reports the ideas of reference, paranoia, being followed or pursued. Memory with mixed impairment. I note she got 4 on reverse digit span, but not 3. Fund of knowledge below average. FORMULATION: A 60-year-old female transferred from [facility] due to paranoia, being pursued, auditory hallucinations. DIAGNOSES: Schizoaffective disorder, unspecified type, currently decompensated. Her other diagnoses include mild neurocognitive disorder, history of persistent depressive disorder, unspecified anxiety, drinking alcohol socially with history of alcohol use disorder, history of stimulant use disorder. PLAN: [facility]arily [facility] in [address] [address] HISTORY AND PHYSICAL Name: JAKOB QUINONES Room #: 518A-A ADM IN M.R.#: [id number] Admission: 04/09/21 Attend Phys: Jose M Conway, DO Discharge: Date of : 56 Report #: [id number]. Evaluate, stabilize, obtain collateral. With regard to her medications, Vraylar, which is cariprazine, is nonformulary, so I have started her on Seroquel XR 300 mg at bedtime. I was goign to use an Olanzapine regimen, and she got a 5 mg dose this morning; however, I think she is too tremulous for that and caliming Parkinsons Disease diagnosis. I also will disocntinue metoprolol succinate 12.5 mg oral b.i.d. due to concern of dropping pulse, BP too low and I have discontinued her Prozac. I will leave Cogentin for now. I will leave the hydroxyzine at present for now. She is getting Depakote ER 1000 mg at bedtime. I willdo have a blood level scheduled tonight at 1800. STRENGTHS: Insured, has housing. WEAKNESSES: At least mild neurocognitive disorder, poor coping skills. Also, home health care social worker, obtaining records from here at [facility] and reaching out to the therapist, field nurse case manager. Time spent on this case is greater than 60 minutes, greater than 50% of the time was spent on review of records and coordination of care. <ELECTRONICALLY SIGNED> By: Jose M Conwya DO 04/11/21 0815 1527 1620 Jose M Conway DO /nt
[2021-04-11 09:18] VITALS: BP 92/48
[2021-04-11 10:01] VITALS: BP 120/76
[2021-04-11 10:15] VITALS: BP 120/76
--- NOTE | 2021-04-11 11:49 | NUR ---
RESUMMED CARE FROM OVERNIGHT SHIFT THIS AM, PATIENT IN ROOM RESTING QUIET. PATIET ATE BREAKFAST PATIENT DID NOT HAVE MORNING MEDICATION. PATIENT DENIES SI/HI/AH/VH AT PRESENT. PATIENTS ABDOMEN SOFT BOWEL SOUNDS PRESENT, PATIENTS LUNGS CLEAR. PATIENT GOT UP WORKED WITH PT WITH WALKER SHE DID WELL WALKING WITH STAND BY ASSIST. PATIENT HAS NOT DISPLAYED ANY BEHAVIORS WILL CONTINUE TO MONITOR PATIENT FOR SAFETY AD BEHAVIORS.
[2021-04-11 19:18] VITALS: BP 120/71
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
[2021-04-12 09:03] VITALS: BP 142/118
--- NOTE | 2021-04-12 16:57 | NUR ---
WITHDRAWN TO ROOM UNTIL APPROX 1000 REPORTING POOR SLEEP LAST PM-DID EAT BREAKFAST IN ROOM AND ATTENDED AM ACTIVITIES WITH PROMPTING. SAD FACIAL EXPRESSION AND POOR EYE CONTACT NOTED DURING AM ASSESSMENT WITH THIS NURSE. DOES REPORT A LONG HX OF DEPRESSION WITH RECENT (4-5) DAYS AGO SI-DENIES SI/SH CURRENTLY-WHEN ASKED ABOUT TRIGGERS/STRESSORS STATES "I JUST SIT AROUND-I LONLEY I WANT TO GO DO SOMETHING"DENIES PAIN CURRENTLY-SO SIGNIFICANT MEDICAL ISSUES REPORTED OR NOTED DURING AM PHYSICAL ASSESSMENT. GAIT STEADY WITHOUT ASSISTVE DEVICES. COOPERATIVE WITH ALL REQUESTS FROM NURSING STAFF
[2021-04-12 21:41] VITALS: BP 148/77
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
[2021-04-13 07:29] VITALS: BP 125/63
--- NOTE | 2021-04-13 08:56 | NUR ---
Alert and orientated X4. Denies SI/HI. Calm, cooperative and pleasant with assessment but did become angry and went to room after breakfast. She was sitting by herself at table when episode occurred. Breath sounds clear. Reg HR auscultated. Color pink with brisk capillary refill and palpable peripheral pulses. No edema noted. Active bowel sounds over soft, rounded abdomen. States last BM was yesterday. Ambulates with walker with regular, steady gait.
--- NOTE | 2021-04-13 10:12 | NUR ---
Patient located in her room; yelling, screaming and hitting the bed when SUPERVISOR YARD came into the room; Patient stated "I want my medications, I have day time medications for my tremors," "There is a white football one, for my blood pressure and tremors." SUPERVISOR YARD attempted to calm the patient, and was unable to successfully do so. DAVID Ng had been talking with the patient in regards to these medications and the patient stormed off from the nurses station and began having the episode in her room; Patient then stormed out of her room and began pacing the busch; she continued yelling out at staff, causing disruption to cares; patient asked to return to her room and refused to do so; SUPERVISOR YARD called for public safety @0955 per charge nurse request; Public safety arrived and the patient with verbal communications walked to her room with public safety without issue; DAVID Ng paged @1000 in regards to patient request and medication rx. of Metoprolol; Page was returned at 1004; Medication was added to the patients MAR & informed he would see the patient later today; Patient has sense calmed down, after recieving a PRN Hydroxyzine @1000; Patient phone was recieved from Security per Charge Nurse request; as the patient stated she believes she so anxious and irritable because she hasn't heard from her son; Phone was recieved for the patient to get numbers off the device and check to see if any messages from the son were on the phone;
[2021-04-13 11:16] VITALS: BP 129/81
--- NOTE | 2021-04-13 13:38 | NUR ---
SW met with patient during group for individual check-in. Patient expressed worry for her son, Lynn Giron Jr (#[id number]). Patient stated her son is incarcerated but that she has not heard from him recently.
[2021-04-13 19:46] VITALS: BP 121/90
--- NOTE | 2021-04-13 23:49 | NUR ---
At onset of shift pt was sitting in day room reading a book. This shift pt was alert and oriented x3. Pt's insight into situation varies. Pt was compliant with vital signs. Pt would only took 100mg of the scheduled 300mg Seroquel. Later in the shift pt became tearful and wanted to speak with RN. Pt would not speak to this RN, but wanted to speak to "an older nurse." Pt spoke with "older" RN. During conversation pt was tearful and hyper-mandaeism. Pt talked about how she has let god down and how she has sinned. Pt received 25mg hydroxyzine PRN for anxiety. Pt was able to return to her room and sleep. Pt is a low fall risk. Will continue to monitor.
[2021-04-14 08:19] VITALS: BP 133/71
[2021-04-14 10:34] VITALS: BP 133/71
--- NOTE | 2021-04-14 11:01 | NUR ---
Patient care resummed; Patient located in her room restinf comfortably; Pt. Orientated to self,time,place,situation; Patient presents sad and withdrawn today; Patient has been noted sleeping in her room throughout the morning; Compliant with cares and medications; Denies pain, SOB, ChestPain, SI/HI/AVH; VSS on RoomAir; Tremors present; Will continue to monitior patient for safety and behaviors; low-fall risk;
[2021-04-14 13:28] VITALS: BP 121/74
--- NOTE | 2021-04-14 18:24 | NUR ---
Patient became irritable around 1400; patient began yelling out at staff and other patients; when MAIL ORDER BILLER offered PRN Hydrolazine patient states "I'm not taking that shit, makes me sleep all day and doesn't help me at all." MAIL ORDER BILLER informed patient that we need to take this to help us calm down and not be so irritable; Patient continued to refuse; about 15minutes later patient took the PRN; patient continued acting out and refused to go to her room; was on unit and started PRN Haldol 2.5mg; Patient told she was thankful and glad she prescribed the new medicine;
[2021-04-14 19:04] VITALS: BP 100/56
[2021-04-14 20:10] VITALS: BP 100/56
--- NOTE | 2021-04-15 01:43 | NUR ---
PATIENT HAS BEEN UP IN DINING ROOM THIS EVENING AND CALM AND COOPERATIVE FOR THE MOST PART. PATIENT HAS SEROQUEL 300MG PO ORDERED BUT PATIENT REFUSED TO TAKE THE WHOLE DOSE D/T SHE SAYS IT KNOCKS HER OUT AND SHE FEELS SHE'S BEING OVER MEDICATED. PATIENT TOOK TOTAL OF 150MG OF SEROQUEL. PATIENT BECAME AGITATED THE MORE I TRIED TO ENCOURAGE HER TO TAKE THE WHOLE DOSE. SHE BECAME IRRITABLE WHEN APPROACHED BEFORE BED TO ENCOURAGE HER TO TAKE REST OF HER SEROQUEL. PATIENT WENT TO BED ON HER OWN AND HAS BEEN SLEEPING. PATIENT WALKS WITH STEADY GAIT. ROUTINE ROUNDS TO ASSESS SAFETY AND STATUS OF PATIENT. CONTINUING TO MONITOR.
[2021-04-15 08:56] VITALS: BP 126/91
--- NOTE | 2021-04-15 11:59 | NUR ---
EPISODE OF AGITATION/FRUSTRATION IN DAYROOM THIS AM-BECAME UPSET WHEN STAFF WOULD NOT TURN TV UP FOR HER-BEGAN TO HIT TABLE IN RYTHMIC FASHION IF PLAYING DRUMS-WHEN APPROACHED BY STAFF MINIMIZES BEHAVIOR STATING "I'M JUST RESTLESS THIS GETS MY ENERGY OUT AND HELPS ME" FACIAL EXPRESSION INCONGRUENT WITH THIS STATEMENT IS NOTED TO BE SMILING BROADLY. A SHORT TIME LATER GOT UP AND LEFT ROOM STATING SHE DID NOT WANT TO ATTEND SCHEDULED AM GROUPS, DENIES PAIN/DISCOMFORT. DESCRIBES MOOD DURING AM ASSESSMENT "NERVOUS THE DR TOLD ME I COULD GO HOME TODAY SO I WANT TO SEE HIM RIGHT AWAY" DENIES A/V HALLUCINATIONS-DENIES PARANOIA/ PSYCHOSIS ALTHOUGH IS GUARDED DURING ASSESSMENT AND OFFERS MINIMAL RESPONSE TO QUESTIONS ASKED.
--- NOTE | 2021-04-15 14:14 | NUR ---
DHAVAL and Dr. Balbuena met with the Pt concerning her behaviors on the unit and other concerns. Pt was concerned about being discharged today due to having to pay her bills. Pt stated she believed her gas was cut off but was not sure. When DHAVAL inquired about if Pt had recieved a notice from the [facility] prior to hospitalizatoin, Pt became aggitated . However Pt answered No to the inquiry. Discharge was discussed with the Pt. Pt believes she is in need of a home health aide to assist with medications. Pt Stated her CM through [facility] was assisting her with the service. Pt stated her CM name was Lynne but did not know the last name. Pt had no other concerns at this time.
--- NOTE | 2021-04-15 14:24 | NUR ---
SW contacted [facility] follow up appointments. Pt has an upcoming appointment with Reji Colin APRN on 04/16/2021 @ 6724. The executive secretary was unable to tell me the Pt's CM information. Stating she did not have access to who the CM was.
[2021-04-15 14:27] VITALS: BP 126/91
[2021-04-15 14:30] VITALS: BP 126/91
[2021-04-15] MEDS ORDERED: DIVALPROEX SOD500 M1 PO ×2 (15:07)
[2021-04-15] MEDS ORDERED: QUETIAPINE FUM150 MG PO (15:08)
--- NOTE | 2021-04-15 16:45 | NUR ---
DISCHARGE INSTRUCTIONS REVIEWED WITH PT INSLUCING DC MEDICATIONS -FOLLOW UP APPOINTMENTS-WHEN TO SEEK EMERGENCY TREATMENT, STATES UNDERSTANDING AND DENIES ANY QUESTIONS/CONSERNS AT THIS TIME. DENIES SI/SH/HI AT TIME OF DC. HOME MEDS OBTAINED FROM PHARMACY AND VALUABLES RETRIEVED FROM [facility]. DISCHARGED TO HOME VIA [facility] AT APPROX 1605-SMILING AND UP IN MOOD AT TIME OF DC-STATES SHE FEELS "HAPPY AND READY TO GO"
--- NOTE | 2021-04-18 19:22 | D ---
[facility] [place] [address] DISCHARGE SUMMARY Name: JAKOB QUINONES Room #: 518A-A DIS IN M.R.#: [id number] Admission: 04/09/21 Attend Phys: Jose M Conway DO Discharge: 04/15/21 Date of : 56 Report #: [id number] THIS REPORT FOR: cc: FAM - No family physician/PCP FAM - No family physician/PCP Jose M Conway DO ~ DATE OF SERVICE: 04/15/2021 INPATIENT PSYCHIATRIC DISCHARGE SUMMARY ATTENDING PSYCHIATRIST: Jose M Conway DO [employer] SALESPERSON: Kelsi Prieto MD DISCHARGE DIAGNOSES: Schizoaffective disorder, unspecified type, some improvement; history of seizure disorder, on Depakote for mood stabilization as well; generalized tremor. ADVERSE REACTION TO PROPRANOLOL. Lopressor was resumed this morning. History of amphetamine, tobacco and alcohol use disorder, smoking cessation prescribed. The patient is discharged to her home. Aftercare is as follows: Reji Colin APRN on 04/16/2021 at 1330. The patient has a case supervisor, but we were not able to finish with that information. The patient was encouraged to see her primary care physician in 1 month. DISCHARGE MEDICATIONS: Metoprolol succinate 12.5 mg oral twice daily for htn and anxiety, hydroxyzine 25 mg oral twice daily p.r.n. for severe anxiety, albuterol sulfate, ProAir HFA 0.5 grams HFA 1 puff q. 6 hours p.r.n. wheezing, Depakote ER 1000 mg oral at bedtime, Seroquel for mood extended release 150 mg oral at bedtime for psychosis. Of note, the patient did not know her home medications. After obtaining list from [facility], she had been on cariprazine prior to admission; however, this was not on hospital formulary, so it was switched to Seroquel. The patient is actually willing to take Navane which she was not started on this admission. The patient is advised to continue the Seroquel and not make other changes without coordination with her outpatient psychiatric provider. LABORATORY DATA: This admission, hematology on 04/10/2021, white count 7.7, H and H 13.3 and 40.2, platelet count 289. Chemistries: Sodium 145, potassium 4.6, chloride 110, bicarbonate 25, anion gap 10, BUN 15, creatinine 1.0, estimated GFR 56, glucose 102, A1c 5.5, calcium 9.2, magnesium 2.1. Triglycerides 173, cholesterol 190, LDL 100, HDL 56. Toxicology: Depakote level on 04/14/2021 was 65. She was therapeutic on the Depakote. COVID-19 PCR was not detected on 04/12/2021 or 04/14/2021. It was also negative on 04/09/2021. [address] [address] DISCHARGE SUMMARY Name: JAKOB QUINONES Room #: 518A-A DIS IN M.R.#: [id number] Admission: 04/09/21 Attend Phys: Jose M Conway DO Discharge: 04/15/21 Date of : 56 Report #: [id number] No alcohol, no illicit drugs, no driving. Recommend continuing smoking cessation. Regular diet. Uses a walker. REASON FOR ADMISSION: Back on the 04/09/2021, a 60-year-old female admitted through the ER. Apparently, she did not feel comfortable going home, believing someone is following her, hearing a voice, she is unable to understand. She was originally admitted at [facility]. She was last admitted in 2019, diagnosed with schizoaffective disorder, mild neurocognitive disorder. HOSPITAL COURSE: The patient was admitted to [facility]iatric Psychiatry Unit. We had some difficulty sorting out what her medications were. The patient has poor memory for this. Limited preferences and finding out she was on nonformulary drug, is started on Seroquel XR. The patient has limited coping skills, wanted to be discharged to not suicidal or homicidal on the day of discharge, npot meeting criteria for involuntary hospitalization. PHYSICAL EXAMINATION: VITAL SIGNS: Temperature 36.6, pulse 72, respirations 18, BP 126/91, O2 sat at 96%. MUSCULOSKELETAL: Sometimes uses a walker. otheriwse normal station. Wearing glasses. MENTAL STATUS EXAMINATION: Well-developed, average body habitus female apparently stated age. Attention fair. Concentration fair. Speech normal rate and tone. Thought Process linear and goal directed. Thought content focused on discharge. Denied SI, HI, auditory or visual type hallucinations, hopeless, helplessness. Mood and affect irritable at times, but generally euthymic. Memory not formally tested. At the time of discharge, insight and judgment limited fund of knowledge probably below average. Prognosis for this patient is fair to guarded and will depend on her engagement in [facility], medication compliance and promotion of general health. <ELECTRONICALLY SIGNED> By: Jose M Conway DO 04/18/211921 55 26 Jose M Conway DO /nt
== END 2021-04-15 13:53 | disposition home or self-care (01) | DRG 885 ==
LOC: SBH
PROVIDERS: Nurse Practitioner Family; ADMIT Psychiatry & Neurology Psychiatry; ATTEND Psychiatry & Neurology Psychiatry
DX: F25.1 Schizoaffective disorder, depressive type (principal); G40.909 Epilepsy, unspecified, not intractable, without status epilepticus; F25.0 Schizoaffective disorder, bipolar type; F03.90 Unspecified dementia, unspecified severity, without behavioral disturbance, psychotic disturbance, mood disturbance, and anxiety; F32.9 Major depressive disorder, single episode, unspecified; Z60.2 Problems related to living alone; G25.2 Other specified forms of tremor; Z20.822 Contact with and (suspected) exposure to COVID-19; Z87.891 Personal history of nicotine dependence; Z81.8 Family history of other mental and behavioral disorders; Z90.49 Acquired absence of other specified parts of digestive tract; Z79.899 Other long term (current) drug therapy
CPT/HCPCS: 10880